=== PATIENT | female | born 1975 | race Caucasian/White ===

== ENCOUNTER 2024-01-10 10:51 | Emergency (ER) | payer BC ==
[~2024-01-10] VITALS: Ht 154.9 cm; Wt 113.4 kg
[2024-01-10 10:53] VITALS: BP 123/70; PULSE 99; RESP 15; TEMP 98.5; O2SAT 99
[2024-01-10] MEDS: ALBUTEROL 0.083% 2.5 MG/3 ML NEBU INH ONE ×2 (11:40→12:46)
[2024-01-10] MEDS: IPRATROPIUM 0.02% 0.5 MG/2.5 ML NEBU INH ONE (11:40)
[2024-01-10 11:41] VITALS: PULSE 96; RESP 21; O2SAT 94
[2024-01-10] MEDS ORDERED: predniSONE 20 MG TAB ONE (12:32)
[2024-01-10] MEDS ORDERED: predniSONE 10 MG TAB ONE (12:33)
[2024-01-10] MEDS: predniSONE 20 MG TAB PO ONE (12:36)
[2024-01-10 12:47] VITALS: PULSE 104; RESP 22; O2SAT 93
[2024-01-10 12:51] LABS: FLU A ANTIGEN negative (NEGATIVE); FLU B ANTIGEN NEGATIVE (NEGATIVE)
[2024-01-10] MEDS ORDERED: INHA1SPA89 MC (12:51)
[2024-01-10] MEDS ORDERED: PRED20TA5 PO (12:51)
[2024-01-10] MEDS ORDERED: ALBU0.0912 IH (12:51)
[2024-01-10 13:38] VITALS: BP 140/70; PULSE 77; RESP 20; O2SAT 99
== END 2024-01-10 13:39 | disposition home or self-care (01) ==
LOC: MED 10:51
DX: J40 Bronchitis, not specified as acute or chronic (principal); J98.01 Acute bronchospasm; B34.9 Viral infection, unspecified; H92.09 Otalgia, unspecified ear; Z20.822 Contact with and (suspected) exposure to COVID-19; Z86.69 Personal history of other diseases of the nervous system and sense organs; Z79.899 Other long term (current) drug therapy; Z98.890 Other specified postprocedural states
CPT/HCPCS: 71045; 87426; 87804; 93005; 94640; 99285; J7512; J7613; J7644